=== PATIENT | male | born 1985 | race Caucasian/White ===

== ENCOUNTER 2017-08-09 15:52 | Emergency (ER) | payer SELFPAY ==
[~2017-08-09] VITALS: Ht 172.7 cm; Wt 136.1 kg
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
[2017-08-09] MEDS ORDERED: OXYC-202 PO (16:30)
[2017-08-09] MEDS ORDERED: CYCL5TAB PO (16:30)
[2017-08-09] MEDS ORDERED: NAPR500T PO (16:30)
[2017-08-09] MEDS ORDERED: fentaNYL INJECTION 100 MCG/2 ML AMP IVP ONE (16:45)
--- NOTE | 2017-08-09 16:46 | Diagnostic Imaging Report ---
INDICATION: Coughing. Buena a pop. Left-sided chest pain. EXAMINATION: PA and lateral views of the chest. FINDINGS: The heart size and vascularity are normal. Lungs are clear. There is no effusion. There is no acute bony abnormality. IMPRESSION: No acute abnormality is seen. Dictated by: Dictated on workstation # [id number]
[2017-08-09 17:37] VITALS: BP 132/87
== END 2017-08-09 17:37 | disposition home or self-care (01) ==
LOC: ER 15:55
DX: R07.81 Pleurodynia (principal); F17.210 Nicotine dependence, cigarettes, uncomplicated
CPT/HCPCS: 71020; 99284

== ENCOUNTER 2017-10-30 18:05 | Emergency (ER) | payer SELFPAY ==
[~2017-10-30] VITALS: Ht 172.7 cm; Wt 145.1 kg
[~2017-10-30 18:05] MED LIST: CYCL5TAB PO; NAPR-1071 PO; OXYC-202 PO
[2017-10-30] MEDS ORDERED: META800T PO (18:44)
--- NOTE | 2017-10-30 18:44 | ED Back Pain ---
General Chief Complaint: Back Problems Stated Complaint: BACK PAIN Source of Information: Patient Exam Limitations: No Limitations History of Present Illness Date Seen by Provider: Oct 30, 2017 Time Seen by Provider: 18:41 Initial Comments To ER with midline low back pain. This began after he slipped and fell landing on his buttocks on the ice on Thursday10/24/17. Pain is nonradiating. No loss of bowel or bladder control. Location: Lumbar Spine, Paraspinous Muscles Timing/Duration: 1 Week Severity: Moderate Associated Symptoms: lower back pain Allergies and Home Medications Allergies Coded Allergies: No Known Drug Allergies (Unverified , 08/09/17) Home Medications Cyclobenzaprine HCl 5 Mg Tablet, Unknown Dose PO, (Reported) Naproxen 500 Mg Tablet, Unknown Dose PO, (Reported) Oxycodone HCl/Acetaminophen 1 Each Tablet, Unknown Dose PO, (Reported) Constitutional: see HPI EENTM: see HPI Respiratory: no symptoms reported Cardiovascular: no symptoms reported Genitourinary: no symptoms reported Musculoskeletal: see HPI, back pain Skin: no symptoms reported Psychiatric/Neurological: No Symptoms Reported Past Yfupwdr-Gwcsry-Aufxtb Hx Patient Social History Type Used: Cigarettes Recent Foreign Travel: No Contact w/Someone Who Travel: No Physical Exam Vital Signs Capillary Refill : General Appearance: No Apparent Distress, WD/WN HEENT: PERRL/EOMI, TMs Normal Respiratory: No Accessory Muscle Use, No Respiratory Distress Gastrointestinal: Non Tender, Soft Back: Normal Inspection Extremity: Normal Capillary Refill, Normal Inspection Neurologic/Psychiatric: Alert, Oriented x3, No Motor/Sensory Deficits Skin: Normal Color, Warm/Dry Departure Impression Impression: Primary Impression: Acute low back pain Disposition: HOME, SELF-CARE Condition: Stable Departure-Patient Inst. Decision time for Depature: 18:43 Referrals: NO,LOCAL PHYSICIAN (PCP/Family) Primary Care Physician Patient Instructions: Low Back Pain (DC) Add. Discharge Instructions: 1. Follow-up with your regular doctor next week for recheck. Return to ER for any concerns. Add Tylenol and Motrin to the prescribed muscle relaxers. All discharge instructions reviewed with patient and/or family. Voiced understanding. Scripts Metaxalone (Metaxalone) 800 Mg Tablet 800 MG PO Q8H Y for PAIN-MODERATE TO SEVERE, #20 TAB Prov: PALMIRA BOLANOS APRN 10/30/17 Work/School Note: Local [employer] Listing, Work Release Form Date Seen in the Emergency Department: Oct 30, 2017 Return to Work: Nov 02, 2017 PALMIRA BOLANOS APRN Oct 30, 2017 18:44
--- NOTE | 2017-10-30 19:08 | Diagnostic Imaging Report ---
EXAMINATION: Lumbar spine at 0710 PM INDICATION: Fell, back pain AP, lateral and spot lateral views were obtained. There are no prior studies available for comparison. The lateral view shows the vertebral body heights and alignment to be within normal limits. The intervertebral disc spaces are fairly well-maintained. There is no fracture or acute bony abnormality evident. There is no sign of a paraspinal mass. Incidental note is made of fairly severe degenerative disc and bony disease at the T11-12 level. IMPRESSION: There is no evidence for an acute bony abnormality. Dictated by: Dictated on workstation # [id number]
[2017-10-30 19:29] VITALS: BP 0/0
== END 2017-10-30 19:29 | disposition home or self-care (01) ==
LOC: EDUNIT# 18:05 → ER 18:06
DX: M54.5 Low back pain (principal)
CPT/HCPCS: 72100; 99282